=== PATIENT | male | born 1980 | race Caucasian/White ===

== ENCOUNTER 2024-07-29 15:34 | Oncology outpatient (recurring) (ONCR) | payer BC, SELFPAY ==
[2024-07-29 16:11] LABS: Hematocrit 50.9 % (37-53); Mean Corpuscular HGB Conc 34.2 g/dL (30-55); Mean Corpuscular Hemoglobin 33.1 pg (27-33); Mean Corpuscular Volume 96.8 fl (82-101); Platelet Count 234 10^3/cmm (157-399); Red Blood Count 5.26 10^6/uL (3.85-5.65); Red Cell Distribution Width 13.4 % (12.1-15.1); White Blood Count 7.37 10^3/uL (3.29-11.43)
[2024-07-29 16:16] VITALS: BP 184/69; PULSE 95; RESP 18; TEMP 36.5; O2SAT 95
[2024-07-29 16:45] VITALS: BP 136/96; PULSE 97; RESP 17; O2SAT 94
== END 2024-08-15 23:59 | disposition home or self-care (01) ==
PROVIDERS: Visit Provider Physician Assistant Medical
DX: Z79.890 Hormone replacement therapy (principal)
CPT/HCPCS: 36415; 85027; 99195